=== PATIENT | male | born 1975 | race Caucasian/White ===

== ENCOUNTER 2019-10-03 17:14 | Emergency (ER) | payer OTHER ==
[~2019-10-03] VITALS: Ht 172.7 cm; Wt 84.4 kg
[2019-10-03 17:31] VITALS: Ht 172.7 cm; Wt 84.4 kg
[2019-10-03 18:01] LABS: BASOPHIL % 0.3 % (0-2); PLATELET COUNT 282 x10^3mcL (130-400); RED CELL DISTRIBUTION WIDTH 13.5 % (11.5-14.5)
[2019-10-03 18:06] LABS: CALCIUM 9.1 mg/dL (8.5-10.1); CARBON DIOXIDE 29.1 mmol/L (21-32); CHLORIDE SERUM 97 mmol/L (98-107); CREATININE SERUM 0.8 mg/dL (0.7-1.3); GFR1 > 60 mL/min; GLUCOSE SERUM 105 mg/dL (74-106); POTASSIUM SERUM 3.7 mmol/L (3.5-5.1); SODIUM SERUM 133 mmol/L (136-145)
[2019-10-03 18:11] LABS: ALBUMIN 4.1 g/dL (3.4-5.0); ALKALINE PHOSPHATASE 78 U/L (46-116); ALT/SGPT 36 U/L (16-63); AST/SGOT 25 U/L (15-37); BILIRUBIN TOTAL 0.3 mg/dL (0.20-1.00); LIPASE 151 IU/L (73-393)
[2019-10-03 18:13] LABS: TOTAL PROTEIN, SERUM 8.5 g/dL (6.4-8.2)
[2019-10-03 18:31] LABS: C REACTIVE PROTEIN < 0.2 mg/dL (<=0.9)
[2019-10-03 21:53] VITALS: BP 133/88
== END 2019-10-03 21:53 | disposition home or self-care (01) ==
LOC: ED 17:14
PROVIDERS: Emergency Medicine
DX: R10.32 Left lower quadrant pain (principal)
CPT/HCPCS: 36415; J1885